=== PATIENT | male | born 1995 | race Caucasian/White ===

== ENCOUNTER 2018-07-09 09:50 | Emergency (ER) | payer OTHER ==
[2018-07-09 10:28] LABS: URINE BLOOD (Dip) POC 1+ (NEGATIVE); URINE GLUCOSE (Dip) POC Negative (NEGATIVE); URINE KETONES (Dip) POC 1+ (NEGATIVE); URINE LEUKOCYTE EST (Dip) POC Negative (NEGATIVE); URINE NITRITE (Dip) POC Negative (NEGATIVE); URINE TOTAL PROTEIN POC 1+ (NEGATIVE)
== END 2018-07-09 11:09 | disposition home or self-care (01) ==
LOC: FTE 09:50
DX: N50.9 Disorder of male genital organs, unspecified (principal)
CPT/HCPCS: 81003; 87252; 87591; 99283

== ENCOUNTER 2018-08-30 11:59 | Emergency (ER) | payer OTHER ==
[2018-08-30] MEDS: IBUPROFEN 800 MG TAB PO (13:11)
[2018-08-30] MEDS: HYDROCODONE/APAP (10/325) TAB PO (13:43)
== END 2018-08-30 16:40 | disposition home or self-care (01) ==
LOC: FTE 16:40
DX: S92.901A Unspecified fracture of right foot, initial encounter for closed fracture (principal); W01.0XXA Fall on same level from slipping, tripping and stumbling without subsequent striking against object, initial encounter; Y92.89 Other specified places as the place of occurrence of the external cause
CPT/HCPCS: 29515; 73630; 99283-25

== ENCOUNTER 2018-10-11 01:25 | Emergency (ER) | payer OTHER | END 2018-10-11 05:43 | disposition home or self-care (01) | LOC: FTE 01:25 | DX: K59.00 Constipation, unspecified (principal) | CPT/HCPCS: 99282; Z7502 ==

== ENCOUNTER 2018-12-06 19:01 | Emergency (ER) | payer OTHER ==
[2018-12-06] MEDS: LEVOFLOXACIN 750 MG TABLET PO (20:12)
[2018-12-06] MEDS: metroNIDAZOLE 500 MG TAB PO (20:12)
== END 2018-12-06 20:24 | disposition home or self-care (01) ==
LOC: E/R 19:01
DX: T81.40XA Infection following a procedure, unspecified, initial encounter (principal); Y79.8 Miscellaneous orthopedic devices associated with adverse incidents, not elsewhere classified
CPT/HCPCS: 99283; Z7502

== ENCOUNTER 2019-01-11 03:03 | Emergency (ER) | payer OTHER ==
[2019-01-11] MEDS: ACETAMINOPHEN 325 MG TAB PO (05:15)
== END 2019-01-11 06:19 | disposition home or self-care (01) ==
LOC: FTE 03:03
DX: S30.1XXA Contusion of abdominal wall, initial encounter (principal); S20.212A Contusion of left front wall of thorax, initial encounter; S80.02XA Contusion of left knee, initial encounter; V47.5XXA Car driver injured in collision with fixed or stationary object in traffic accident, initial encounter
CPT/HCPCS: 71045; 73564; 74176; 99284-25